=== PATIENT | female | born 1980 | race African-American/Black ===

== ENCOUNTER 2019-01-18 00:28 | Emergency (ER) | payer OTHER ==
[~2019-01-18] VITALS: Ht 167.6 cm; Wt 57.2 kg
[2019-01-18] MEDS ORDERED: HALOPERIDOL1 MG ORAL (00:36)
[2019-01-18] MEDS ORDERED: DILANTIN100 MG ORAL (00:36)
[2019-01-18] MEDS ORDERED: BENADRYL25 MG ORAL (00:36)
[2019-01-18] MEDS ORDERED: Phenytoin 500 MG in NS 110 ML IVPB ONE (00:45)
--- NOTE | 2019-01-18 00:45 | NUR ---
ED Nurse Note: pt brought in by [facility] from a house c/c seizure activity, unk for how long but ems states pt's roommate witnessed. pt currently states she feels tired and drowy. no oral trauma nor urinary incontinence noted, unk if pt injured head but denies headache at this time. pt states she takes dilantin 300mg but missed dose today. pt vss, resp even and unlabored on RA, AA&ox4, gcs=15, will cont monitor.
--- NOTE | 2019-01-18 00:53 | Emergency Room Report ---
History of Present Illness General Chief Complaint: Seizure Source: Patient Present Illness HPI This is a 38-year-old female with a history of seizure. She take Dilantin at night. She missed her dose tonight. She presents with chief complaint of seizure. Lasted for less than a minute. She complaining of some headache and drowsiness now. No oral trauma. No incontinence of bowel or urine. Witnessed by her roommate. Seizure was tonic-clonic in nature. Similar symptom in the past. Allergies: Coded Allergies: No Known Allergies (Unverified , 01/18/19) Patient History Past Medical History: see triage record, old chart reviewed, seizures Past Surgical History: other Pertinent Family History: none Social History: Denies: smoking Last Menstrual Period: unk Now: No Immunizations: other Reviewed Nursing Documentation: PMH: Agreed; PSxH: Agreed Nursing Documentation-PMH Hx Diabetes: Yes Hx Seizures: Yes Review of Systems Eye: Denies: eye pain, blurred vision ENT: Denies: ear pain, nose congestion, throat swelling Respiratory: Denies: cough, shortness of breath Cardiovascular: Denies: chest pain, palpitations Gastrointestinal: Denies: abdominal pain, diarrhea, nausea, vomiting Musculoskeletal: Denies: back pain, joint pain Skin: Denies: rash Neurological: Denies: headache, numbness Endocrine: Denies: increased thirst, increased urine Hematologic/Lymphatic: Denies: easy bruising All Other Systems: negative except mentioned in HPI Physical Exam Vital Signs Date Time Temp Pulse Resp B/P (MAP) Pulse Ox O2 Delivery O2 Flow Rate FiO2 01/18/19 00:28 98.2 100 18 122/78 (93) 98 Room Air Vitals normal Sp02 EP Interpretation: reviewed, normal General Appearance: well appearing, no apparent distress, alert Head: normocephalic, atraumatic Eyes: bilateral eye PERRL, bilateral eye EOMI ENT: hearing grossly normal, normal pharynx Neck: full range of motion, supple, no meningismus Respiratory: chest non-tender, lungs clear, normal breath sounds Cardiovascular #1: regular rate, rhythm, no murmur Gastrointestinal: normal bowel sounds, non tender, no mass, no organomegaly, no bruit, non-distended Musculoskeletal: back normal, gait/station normal, normal range of motion Psychiatric: mood/affect normal Medical Decision Making Diagnostic Impression: Primary Impression: Epileptic seizure, generalized ER Course Patient with seizure secondary to subtherapeutic level. I ordered IV Dilantin but unfortunately there is no filter available. We will give her oral lesion she is able to take oral medication. No evidence of any injury or trauma. No evidence of focal deficit to warrant CT scan or x-ray. Will discharge home. Last Vital Signs Date Time Temp Pulse Resp B/P (MAP) Pulse Ox O2 Delivery O2 Flow Rate FiO2 01/18/19 00:28 98.2 100 18 122/78 (93) 98 Room Air Status: improved Disposition: HOME, SELF-CARE Condition: Stable Referrals: NOT CHOSEN IPA/MD,REFERRING (PCP) Patient Instructions: Seizure, Adult Additional Instructions: Follow-up with your doctor in 7 days. Take your Dilantin. Return if worse. Konstantin Marion MD Jan 18, 2019 00:53
[2019-01-18 01:00] VITALS: BP 120/73
--- NOTE | 2019-01-18 01:15 | NUR ---
ED Nurse Note: called pharmacy pipeline to verify, no filter tubing in ER nor floor, pharmacy states they will call back.
--- NOTE | 2019-01-18 01:22 | NUR ---
Note undone in EDM - 01/18/19 at 0125 by FARIDEH ED Nurse Note: pt brought in by [facility] from a house c/c seizure activity, unk for how long but ems states pt's roommate witnessed. pt currently states she feels tired and drowy. no oral trauma nor urinary incontinence noted, unk if pt injured head but denies headache at this time. pt states she takes dilantin 300mg but missed dose today. pt vss, resp even and unlabored on RA, AA&ox4, gcs=15, will cont monitor.
[2019-01-18] MEDS ORDERED: Phenytoin 100mg cap ORAL ONE ×2 (01:30→01:34)
[2019-01-18 03:20] VITALS: BP 120/73
[2019-01-18] MEDS ORDERED: PHENYTOIN SODI100 MG ORAL (08:43)
== END 2019-01-18 03:20 | disposition home or self-care (01) ==
LOC: EDBD 00:28 → EMR 00:47
DX: G40.409 Other generalized epilepsy and epileptic syndromes, not intractable, without status epilepticus (principal); E11.9 Type 2 diabetes mellitus without complications
CPT/HCPCS: 36415; 80185; 96365; J1165; Z7502; 99284

== ENCOUNTER 2019-01-18 06:42 | Emergency (ER) | payer OTHER ==
[~2019-01-18] VITALS: Ht 165.1 cm; Wt 68.0 kg
[~2019-01-18 06:42] MED LIST: BENADRYL25 MG ORAL; DILANTIN100 MG ORAL; HALOPERIDOL1 MG ORAL
[2019-01-18 06:45] VITALS: BP 118/79
[2019-01-18] MEDS ORDERED: Phenytoin 500 MG in NS 110 ML IV ONE (06:45)
--- NOTE | 2019-01-18 06:53 | Emergency Room Report ---
History of Present Illness General Chief Complaint: Seizure Source: Patient, EMS Present Illness HPI Disclaimer: Please note that this report is being documented using DRAGON technology. This can lead to erroneous entry secondary to incorrect interpretation by the dictating instrument. HPI: 38-year-old female with a history of seizure disorder on Dilantin presents for evaluation after generalized tonic-clonic seizure. This occurred at her correction house where she is currently staying and witnessed by staff there. Generalized convulsions with no reported focal activity according to EMS. Lasted less than 60 seconds and terminated on its own. This is similar to the prior presentations of the patient. She was seen in the emergency department earlier for another generalized tonic-clonic seizure and loaded with Dilantin orally as her serum levels were low at 6.0. There is no reported head injury. The patient is complaining of drowsiness but denies any headache, blurred vision , changes in strength, sensation or coordination. She denies chest pain, shortness of breath, recent nausea, vomiting, diarrhea, dysuria other changes in her health. She was recently released from residential and is staying at a correction home. Staff give her her medications there but she missed her dose last night. PMH: Seizure disorder PSH: Denies Allergies: Denies Social Hx: Occasional tobacco use Allergies: Coded Allergies: No Known Allergies (Unverified , 01/18/19) Patient History Last Menstrual Period: unk Nursing Documentation-PMH Hx Diabetes: Yes Hx Seizures: Yes Review of Systems All Other Systems: negative except mentioned in HPI Physical Exam Vital Signs Date Time Temp Pulse Resp B/P (MAP) Pulse Ox O2 Delivery O2 Flow Rate FiO2 01/18/19 06:38 98.4 89 16 118/79 (92) 97 Room Air General: Awake and alert, no acute distress HEENT: NC/AT. EOMI. PERRLA. No nystagmus. Facial expressions are symmetrical. No facial droop. Cardiovascular: RRR. S1 and S2 normal. No murmur appreciated Resp: Normal work of breathing. No cough, wheezing or crackles appreciated Abdomen: Abdomen is soft, nondistended. Nontender Skin: Intact. No abrasions, laceration or rash over the exposed skin MSK: Normal tone and bulk. Moving all extremities. No obvious deformity. There is no drift in the upper or lower extremities bilaterally. Neuro: Awake and alert. Mentating appropriately though somnolent. Facial expression symmetrical. No dysarthria, no ataxia on [id number]-[id number] testing. Sensation to light touch is intact over the upper and lower extremities. The patient has intact speech with good repetition, comprehension. Fund of knowledge is full. Medical Decision Making Diagnostic Impression: Primary Impression: Epileptic seizure, generalized ER Course Is a 38-year-old female with a history of seizure disorder presenting for generalized tonic-clonic seizure in the setting of a low Dilantin level on previous visit several hours ago. Patient likely had another seizure secondary to subtherapeutic levels of Dilantin and her blood. We will give another dose of Dilantin but expand work-up with broad blood work. There is no evidence of injury and the aborted seizure activity occurred while in bed witnessed by staff. Physical exam is nonfocal and I do not believe she requires emergent head imaging at this time. Will monitor closely in the ER and expand work-up as needed Laboratory Tests Test 01/18/19 07:20 01/18/19 08:07 White Blood Count 6.5 K/UL (4.8-10.8) Red Blood Count 4.89 M/UL (4.20-5.40) Hemoglobin 11.6 G/DL (12.0-16.0) L Hematocrit 35.7 % (37.0-47.0) L Mean Corpuscular Volume 73 FL (80-99) L Mean Corpuscular Hemoglobin 23.7 PG (27.0-31.0) L Mean Corpuscular Hemoglobin Concent 32.4 G/DL (32.0-36.0) Red Cell Distribution Width 14.1 % (11.6-14.8) Platelet Count 217 K/UL (150-450) Mean Platelet Volume 6.0 FL (6.5-10.1) L Neutrophils (%) (Auto) 55.9 % (45.0-75.0) Lymphocytes (%) (Auto) 27.9 % (20.0-45.0) Monocytes (%) (Auto) 7.3 % (1.0-10.0) Eosinophils (%) (Auto) 7.9 % (0.0-3.0) H Basophils (%) (Auto) 1.0 % (0.0-2.0) Sodium Level 139 MMOL/L (136-145) Potassium Level 4.6 MMOL/L (3.5-5.1) Chloride Level 106 MMOL/L (98-107) Carbon Dioxide Level 28 MMOL/L (21-32) Anion Gap 5 mmol/L (5-15) Blood Urea Nitrogen 15 mg/dL (7-18) Creatinine 0.7 MG/DL (0.55-1.30) Estimate Glomerular Filtration Rate > 60 mL/min (>60) Glucose Level 88 MG/DL (74-106) Calcium Level 8.8 MG/DL (8.5-10.1) Total Bilirubin 0.1 MG/DL (0.2-1.0) L Aspartate Amino Transferase (AST) 16 U/L (15-37) Alanine Aminotransferase (ALT) 31 U/L (12-78) Alkaline Phosphatase 96 U/L (46-116) Troponin I 0.000 ng/mL (0.000-0.056) Total Protein 7.4 G/DL (6.4-8.2) Albumin 3.2 G/DL (3.4-5.0) L Globulin 4.2 g/dL Albumin/Globulin Ratio 0.8 (1.0-2.7) L Salicylates Level 1.3 ug/mL (2.8-20) L Acetaminophen Level < 2 MCG/ML (10-30) L Serum Alcohol < 3 mg/dL Urine Color Pale yellow Urine Appearance Clear Urine pH 6.5 (4.5-8.0) Urine Specific [place] 1.010 (1.005-1.035) Urine Protein Negative (NEGATIVE) Urine Glucose (UA) Negative (NEGATIVE) Urine Ketones Negative (NEGATIVE) Urine Blood Negative (NEGATIVE) Urine Nitrite Negative (NEGATIVE) Urine Bilirubin Negative (NEGATIVE) Urine Urobilinogen Normal MG/DL (0.0-1.0) Urine Leukocyte Esterase Negative (NEGATIVE) Urine HCG, Qualitative Negative (NEGATIVE) Urine Opiates Screen Negative (NEGATIVE) Urine Barbiturates Screen Negative (NEGATIVE) Phencyclidine (PCP) Screen Negative (NEGATIVE) Urine Amphetamines Screen Negative (NEGATIVE) Urine Benzodiazepines Screen Negative (NEGATIVE) Urine Cocaine Screen Negative (NEGATIVE) Urine Marijuana (THC) Screen Negative (NEGATIVE) EKG Diagnostic Results EKG Time: 06:55 Rate: normal Rhythm: NSR ST Segments: no acute changes Other Impression Sinus rhythm, normal axis, normal intervals, no ST segment changes Rhythm Strip Diag. Results Rhythm Strip Time: 06:55 EP Interpretation: yes Rate: 80s Rhythm: NSR, no PVC's, no ectopy Reevaluation Time: 08:44 Last Vital Signs Date Time Temp Pulse Resp B/P (MAP) Pulse Ox O2 Delivery O2 Flow Rate FiO2 01/18/19 06:45 89 16 Room Air 01/18/19 06:45 98.4 118/79 97 Reevaluation Impression Patient was given IV Dilantin load on this visit. Labs have returned largely within normal limits. No evidence of acute infection or major electrolyte abnormality. She is well-appearing and stable for outpatient follow-up. Patient will be discharged with a refill of her phenytoin. He will follow-up with her PMD and neurologist. We discussed reasons to return to the emergency department. She understands and agrees with this treatment plan. Disposition: ASSISTED LIVING Condition: Improved Scripts Phenytoin Sodium Extended* (PHENYTOIN SODIUM EXTENDED*) 100 Mg Capsule 300 MG ORAL BEDTIME for 30 Days, #90 CAP 0 Refills Prov: Migue Cook MD 01/18/19 Migue Cook MD Jan 18, 2019 06:53
--- NOTE | 2019-01-18 07:20 | NUR ---
ED Nurse Note: care assummed of pt. pt a/ox4 placed on monitoring and evaluation advisor with seizure pads/precautions in place. pt denies trauma. pt denies etoh/substance use at this time. no dyspnea noted no n/v. labs pending per previous rn, pt aware to obtain urine
[2019-01-18 07:38] LABS: EOSINOPHILS % (AUTO) 7.9 % (0.0-3.0); HEMATOCRIT 35.7 % (37.0-47.0); HEMOGLOBIN 11.6 G/DL (12.0-16.0); LYMPHOCYTES % (AUTO) 27.9 % (20.0-45.0); MEAN CORPUSCULAR VOLUME 73 FL (80-99); MONOCYTES % (AUTO) 7.3 % (1.0-10.0); NEUTROPHILS % (AUTO) 55.9 % (45.0-75.0); PLATELET COUNT 217 K/UL (150-450); RED BLOOD COUNT 4.89 M/UL (4.20-5.40); RED CELL DISTRIBUTION WIDTH 14.1 % (11.6-14.8); WHITE BLOOD COUNT 6.5 K/UL (4.8-10.8)
[2019-01-18 07:42] LABS: ANION GAP 5 mmol/L (5-15); BLOOD UREA NITROGEN 15 mg/dL (7-18); CALCIUM 8.8 MG/DL (8.5-10.1); CARBON DIOXIDE 28 MMOL/L (21-32); CHLORIDE 106 MMOL/L (98-107); CREATININE 0.7 MG/DL (0.55-1.30); POTASSIUM 4.6 MMOL/L (3.5-5.1); SODIUM 139 MMOL/L (136-145)
[2019-01-18 07:46] LABS: ALANINE AMINOTRANSFERASE 31 U/L (12-78); ALBUMIN 3.2 G/DL (3.4-5.0); ALBUMIN/GLOBULIN RATIO 0.8 (1.0-2.7); ALKALINE PHOSPHATASE 96 U/L (46-116); ASPARTATE AMINO TRANSFERASE 16 U/L (15-37); BILIRUBIN,TOTAL 0.1 MG/DL (0.2-1.0)
--- NOTE | 2019-01-18 08:14 | NUR ---
ED Nurse Note: pt voiding on bedpan, urine sent. no seizure activity noted
[2019-01-18 08:24] LABS: APPEARANCE,URINE CLEAR; BILIRUBIN, URINE NEGATIVE (NEGATIVE); COLOR,URINE PALE YELLOW; GLUCOSE, URINE (UA) NEGATIVE (NEGATIVE); KETONES,URINE NEGATIVE (NEGATIVE); LEUKOCYTE ESTERASE ,URINE NEGATIVE (NEGATIVE); NITRITE,URINE NEGATIVE (NEGATIVE); PH,URINE 6.5 (4.5-8.0); PROTEIN,URINE NEGATIVE (NEGATIVE); UROBILINOGEN,URINE NORMAL MG/DL (0.0-1.0)
[2019-01-18 08:30] VITALS: BP 102/74
[2019-01-18] MEDS ORDERED: PHENYTOIN SODI100 MG ORAL (08:43)
[2019-01-18 10:05] VITALS: BP 102/59
--- NOTE | 2019-01-18 10:05 | NUR ---
ER DISCHARGE NOTE: Patient is cleared to be discharged per ERMD, pt is aox4, on room air, with stable vital signs. pt was given dc and prescription instructions, pt was able to verbalize understanding, pt id band and iv site removed without complications. pt is able to ambulate with steady gait. pt took all belongings. pt provided with a taxi voucher back to home address. states she has way to get inside. no further seizure activity while in ed
== END 2019-01-18 10:05 | disposition home or self-care (01) ==
LOC: EDBD 06:42 → EMR 06:55
DX: G40.409 Other generalized epilepsy and epileptic syndromes, not intractable, without status epilepticus (principal); E11.9 Type 2 diabetes mellitus without complications
CPT/HCPCS: 36415; 80053; 80196; 80307; 80329; 81003; 81025; 82962; 84484; 85025; 93005; 96365; J1165; Z7502; 99284